=== PATIENT | male | born 1960 | race Caucasian/White ===

== ENCOUNTER 2018-06-13 11:45 | Day surgery (SDC) | payer BC ==
[2018-06-13] MEDS: Lactated Ringers 1,000 ML IV SCH (13:07)
[2018-06-13] MEDS: Sodium Chloride 0.9% 10 ML Syringe FLUSH PRN (13:08)
[2018-06-13] MEDS ORDERED: Propofol 200 MG/20 ML SDV ONE ×2 (14:59→15:15)
[2018-06-13] MEDS ORDERED: Midazolam 1 MG/ML 2 ML SDV ONE (14:59)
--- NOTE | 2018-06-13 14:59 | PCM.PN ---
- General Info Date of Service: 06/13/18 - Review of Systems Systems Review Comment:: 58 y/o male here for screening colonoscopy. His last colonoscopy was 10 years ago. He does have a remote history of polyps as a child. He is medically stable to proceed today. His recent history and physical is reviewed and no significant changes are noted. I discussed the proposed colonoscopy with the patient. He agrees to proceed accepting risks. - Patient Data Vitals - Most Recent: Last Vital Signs Temp 96.8 F 06/13/18 12:40 Pulse 65 06/13/18 12:40 Resp 14 06/13/18 12:40 BP 133/89 06/13/18 12:40 Pulse Ox 99 06/13/18 12:40 Weight - Most Recent: 95.254 kg Med Orders - Current: Current Medications Lactated Ringer's (Ringers, Lactated) 1,000 mls @ 50 mls/hr IV ASDIRECTED MORENO Last Admin: 06/13/18 13:07 Dose: 50 mls/hr Sodium Chloride (Saline Flush) 10 ml FLUSH Q8HR PRN PRN Reason: keep vein open Last Admin: 06/13/18 13:08 Dose: 10 ml - Problem List Review Problem List Initiated/Reviewed/Updated: Yes - My Orders Last 24 Hours: My Active Orders 06/13/18 12:00 Peripheral IV Care [RC] . DIRECTED Vital Signs [RC] PER UNIT ROUTINE Lactated Ringers [Ringers, Lactated] 1,000 ml IV ASDIRECTED Sodium Chloride 0.9% [Saline Flush] 10 ml FLUSH Q8HR PRN Peripheral IV Insertion Adult [OM.PC] Routine 06/13/18 12:30 Patient to Empty Bladder [RC] ASDIRECTED 06/13/18 13:15 Verify Patient Consent Obtain [RC] ASDIRECTED 06/13/18 Breakfast Nothing Per Oral Diet [DIET] - Assessment Assessment:: Colon cancer screening - Plan Plan:: Colonoscopy
[2018-06-13] MEDS ORDERED: Midazolam 1 MG/ML 2 ML SDV IV ONE (15:00)
[2018-06-13] MEDS ORDERED: Propofol 200 MG/20 ML SDV IV ONE (15:00)
--- NOTE | 2018-06-13 15:42 | PCM.OPNOTE ---
- General Post-Op/Procedure Note Date of Surgery/Procedure: 06/13/18 Operative Procedure(s): Colonoscopy with Polypectomy Findings: Small Sigmoid Colon Polyp Hemorrhoids Pre Op Diagnosis: Colon Cancer Screening Post-Op Diagnosis: Colon Polyp. Hemorrhoids Anesthesia Technique: MAC Primary Surgeon: David Bhatti Pathology: Sigmoid Colon Polyp Output, Urine Amount: 0 EBL in mLs: 0 Complications: None Condition: Good
--- NOTE | 2018-06-13 19:27 | OR ---
DATE OF SURGERY: 06/13/2018 SURGEON: David Bhatti MD REFERRING PROVIDER: TETE Carter PREOPERATIVE DIAGNOSIS: Colon cancer screening. POSTOPERATIVE DIAGNOSIS: Sigmoid colon polyp and hemorrhoids. OPERATION PERFORMED: Colonoscopy with polypectomy. INDICATIONS FOR SURGERY: This 58-year-old male is referred for screening colonoscopy. It has been 10 years since his last colonoscopy. He does have a remote history of colon polyps as a child. FINDINGS: One small polyp was noted in the sigmoid colon, 20 cm from the anal verge. The polyp was approximately 4 mm in size and sessile in configuration. The remainder of the colon appears normal. The patient does have moderate sized internal and external hemorrhoids. DESCRIPTION OF PROCEDURE: The patient was taken to the operating room, he was given intravenous sedation and with him in the left lateral decubitus position digital rectal exam was performed showing no rectal masses. The Olympus colonoscope was inserted into the rectum, retroflexed examination of the rectal canal was performed, the scope was then carefully advanced under direct visualization through the entire length of the colon until the cecum was reached. Cecal acquisition was confirmed by noting the normal internal cecal anatomy including the appendiceal orifice and ileocecal valve. The light was also noted to transilluminate the abdominal wall in the right lower quadrant. After examining the cecum, the scope was slowly withdrawn sequentially re- examining the colonic segments. In the sigmoid colon, the above-described polyp was identified, it ws removed with a cautery snare and retrieved into a polyp trap. The examination was completed and after the entire colon and rectum had been fully examined and with no sign of any complication, the scope was removed and the patient was taken from the operating room in satisfactory condition. ESTIMATED BLOOD LOSS: Zero. COMPLICATIONS: None. PROGNOSIS: Good. /[id number]/MODL
== END 2018-06-13 17:15 | disposition home or self-care (01) ==
LOC: KA.SDS 11:45
PROVIDERS: ATTEND Surgery
DX: Z12.11 Encounter for screening for malignant neoplasm of colon (principal); K63.5 Polyp of colon; K64.8 Other hemorrhoids; K64.4 Residual hemorrhoidal skin tags; I10 Essential (primary) hypertension; Z86.010 Personal history of colon polyps; Z79.899 Other long term (current) drug therapy
CPT/HCPCS: J2250; J2704; J7120

== ENCOUNTER 2018-08-26 11:59 | Emergency (ER) | payer BC ==
[2018-08-26] MEDS ORDERED: Ondansetron 4 MG Tab.DIS PO ONE (12:30)
[2018-08-26] MEDS ORDERED: Sodium Chloride 0.9% 1,000 ML IV ONE (12:31)
[2018-08-26 13:21] LABS: ANION GAP 15.6 mmol/L (5-15); CHLORIDE,CL 105 mmol/L (98-115); SODIUM,NA 140 mmol/L (136-145)
[2018-08-26] MEDS ORDERED: Acetaminophen/oxyCODONE 325-5 MG Tab PO ONE (14:08)
--- NOTE | 2018-08-26 14:36 | EDM.PDOC ---
ED HPI GENERAL MEDICAL PROBLEM - General Chief Complaint: Lower Extremity Injury/Pain Stated Complaint: lightheaded, nausea Time Seen by Provider: 08/26/18 12:20 Source of Information: Reports: Patient, Family () History Limitations: Reports: No Limitations - History of Present Illness INITIAL COMMENTS - FREE TEXT/NARRATIVE: Mr. Lopezs a pleasant 58-year-old male brought in today by his for evaluation of an episode of feeling lightheaded, clammy and mild nausea. Patient is status post a right total knee arthroplasty approximately week to 10 days out and he is doing well with his therapy. He's been taking Percocet for his pain 4 times a day. He was trying to extend the duration of his medication as he was going to run out of his pain pills tomorrow morning. He woke up this morning feeling lightheaded, mildly diaphoretic and nauseated. He reports no shortness of breath, chest pain, palpitations. He does not have any abdominal pain complaints or tenderness. He has not vomited. His noticed his stools are dark. His therapies are coming along nicely with regards to motion. He reports no pain or tenderness in his calf or thigh. His swelling is been minimal in his knee. His incision is been dry. His vital signs shows that his blood pressures were running in the 80s over 40s. He was clammy. 1 L of normal saline was started in IV placed. EKG showed normal sinus rhythm and nonspecific T-wave abnormality. His heart rate was 77 bpm. He is not experiencing labored or difficulty breathing. He reports his pain is well controlled currently at this time. Onset: Today Onset Date: 08/26/18 Onset Time: 08:00 Duration: Hour(s):, Improving Location: Reports: Lower Extremity, Right (s/p RTKA), Generalized Quality: Reports: Ache Severity: Moderate Improves with: Reports: Rest Worsens with: Reports: Movement Associated Symptoms: Reports: Diaphoresis, Nausea/Vomiting. Denies: Chest Pain , Fever/Chills, Headaches, Shortness of Breath, Syncope Treatments MANAGER UNION: Reports: Aspirin, NSAIDS, Other Medication(s) Right Knee Pain Score (Numeric/FACES): 3 - Related Data Allergies Allergy/AdvReac Type Severity Reaction Status Date / Time No Known Drug Allergies Allergy Other Verified 08/26/18 12:58 Home Meds: Home Meds Ibuprofen 200 mg PO ASDIRECTED 06/12/18 [History] Lisinopril 10 mg PO DAILY 06/12/18 [History] Naproxen Sodium [Aleve] 220 mg PO ASDIRECTED 06/12/18 [History] Aspirin 325 mg PO 08/26/18 [History] oxyCODONE HCl/Acetaminophen [Oxycodone-Acetaminophen 5-325] 5 - 325 mg PO Q4HR PRN 08/26/18 [History] Past Medical History HEENT History: Reports: Impaired Vision Cardiovascular History: Reports: Hypertension Gastrointestinal History: Reports: Colon Polyp, GERD, Hemorrhoids Musculoskeletal History: Reports: Other (See Below) Other Musculoskeletal History: rotator cuff bilateral shoulders Endocrine/Metabolic History: Reports: Obesity/BMI 30+ - Infectious Disease History Infectious Disease History: Reports: Chicken Pox - Past Surgical History HEENT Surgical History: Reports: Oral Surgery Cardiovascular Surgical History: Reports: None GI Surgical History: Reports: Colonoscopy, Polypectomy Endocrine Surgical History: Reports: None Musculoskeletal Surgical History: Reports: Arthroscopic Procedure, Carpal Tunnel , Other (See Below) Other Musculoskeletal Surgeries/Procedures:: Right knee replacement Social & Family History - Family History Family Medical History: Noncontributory - Tobacco Use Smoking Status *Q: Never Smoker - Caffeine Use Caffeine Use: Reports: Coffee, Soda - Alcohol Use Days Per Week of Alcohol Use: 2 Number of Drinks Per Day: 2 Total Drinks Per Week: 4 - Recreational Drug Use Recreational Drug Use: No ED ROS GENERAL - Review of Systems Review Of Systems: See Below Constitutional: Reports: Diaphoresis. Denies: Fever, Chills, Weakness, Fatigue HEENT: Reports: No Symptoms Respiratory: Denies: Shortness of Breath, Wheezing Cardiovascular: Reports: Blood Pressure Problem, Lightheadedness. Denies: Chest Pain, Edema, Palpitations, Syncope Endocrine: Reports: No Symptoms GI/Abdominal: Reports: Black Stool, Nausea. Denies: Vomiting : Reports: No Symptoms Musculoskeletal: Reports: Joint Pain (s/p RTKA), Joint Swelling (s/p RTKA) Skin: Reports: No Symptoms, Diaphoresis Neurological: Reports: Dizziness. Denies: Syncope, Trouble Speaking, Difficulty Walking, Weakness, Change in Speech, Gait Disturbance Psychiatric: Reports: No Symptoms Hematologic/Lymphatic: Reports: Anemia (mild postop) Immunologic: Reports: No Symptoms ED EXAM, DIZZINESS - Physical Exam Exam: See Below Exam Limited By: No Limitations General Appearance: Alert, WD/WN, No Apparent Distress, Obese Eye Exam: Bilateral Eye: EOMI, PERRL Ears: Hearing Grossly Normal Nose: Normal Inspection Throat/Mouth: Normal Inspection, Normal Oropharynx, Normal Voice, No Airway Compromise Head Exam: Atraumatic, Normocephalic Vertigo: No: worsens with head to L, worsens with head to R Neck: Normal Inspection, Supple Respiratory/Chest: No Respiratory Distress, Lungs Clear, Normal Breath Sounds, Chest Non-Tender Cardiovascular: Normal Peripheral Pulses, Regular Rate, Rhythm, No Murmur GI/Abdominal: Soft, Non-Tender Neurological: Alert, Normal Mood/Affect, No Motor/Sensory Deficits, Oriented x 3 Back Exam: Normal Inspection Extremities: Normal Inspection, Non-Tender, Joint Swelling, Other ( over the right knee consistent with total knee arthroplasty. No redness or drainage. Motion actively is 110 of flexion comes out to 0 extension). No: Gerson's Sign , Leg Pain, Redness Psychiatric: Normal Affect, Normal Mood Skin Exam: Dry, Intact, Normal Color, Cool Course - Vital Signs Last Recorded V/S: Last Vital Signs Temp 96.3 F 08/26/18 12:15 Pulse 68 08/26/18 13:45 Resp 17 08/26/18 13:45 BP 105/41 L 08/26/18 13:45 Pulse Ox 99 08/26/18 13:45 - Orders/Labs/Meds Orders: Active Orders 24 hr Category Date Time Status EKG Documentation Completion [RC] ASDIRECTED Care 08/26/18 13:01 Active EKG 12 Lead [EK] Routine Ther 08/26/18 13:00 Ordered Labs: Laboratory Tests 08/26/18 08/26/18 08/26/18 Range/Units 12:20 12:20 12:40 WBC 10.19 H (5.00-10.00) 10^3/uL RBC 3.57 L (4.50-6.00) 10^6/uL Hgb 10.6 L D (13.0-17.0) g/dL Hct 31.6 L (40.0-52.0) % MCV 88.5 D (82.0-92.0) fL MCH 29.7 (27.0-31.0) pg MCHC 33.5 (32.0-36.0) g/dL RDW 12.4 (11.5-14.5) % Plt Count 328 D (150-400) 10^3/uL MPV 9.6 (7.4-10.4) fL Immature Gran % (Auto) 0.8 (0.0-5.0) % Neut % (Auto) 86.5 H (50.0-70.0) % Lymph % (Auto) 7.3 L (20.0-40.0) % [place] % (Auto) 4.6 (2.0-8.0) % Eos % (Auto) 0.4 L (1.0-3.0) % Baso % (Auto) 0.4 (0.0-1.0) % Immature Gran # (Auto) 0.08 (0.00-0.50) 10^3/uL Neut # (Auto) 8.82 H (2.50-7.00) 10^3/uL Lymph # (Auto) 0.74 L (1.00-4.00) 10^3/uL [place] # (Auto) 0.47 (0.10-0.80) 10^3/uL Eos # (Auto) 0.04 L (0.10-0.30) 10^3/uL Baso # (Auto) 0.04 (0.00-0.10) 10^3/uL D-Dimer, Quantitative 1570 H (<400) ng/mL Sodium (136-145) mmol/L Potassium (3.3-5.3) mmol/L Chloride (98-115) mmol/L Carbon Dioxide (21.0-32.0) mmol/L Anion Gap (5-15) mmol/L BUN (6-25) mg/dL Creatinine (0.51-1.17) mg/dL Est Cr Clr Drug Dosing mL/min Estimated GFR (MDRD) mL/min Glucose (75 - 99) mg/dL Calcium (8.7-10.3) mg/dL Creatine Kinase 44 (26-276) U/L CK-MB (CK-2) 0.60 (0.00-4.30) ng/mL Troponin I 0.04 (0.00-0.070) ng/mL 08/26/18 Range/Units 12:40 WBC (5.00-10.00) 10^3/uL RBC (4.50-6.00) 10^6/uL Hgb (13.0-17.0) g/dL Hct (40.0-52.0) % MCV (82.0-92.0) fL MCH (27.0-31.0) pg MCHC (32.0-36.0) g/dL RDW (11.5-14.5) % Plt Count (150-400) 10^3/uL MPV (7.4-10.4) fL Immature Gran % (Auto) (0.0-5.0) % Neut % (Auto) (50.0-70.0) % Lymph % (Auto) (20.0-40.0) % [place] % (Auto) (2.0-8.0) % Eos % (Auto) (1.0-3.0) % Baso % (Auto) (0.0-1.0) % Immature Gran # (Auto) (0.00-0.50) 10^3/uL Neut # (Auto) (2.50-7.00) 10^3/uL Lymph # (Auto) (1.00-4.00) 10^3/uL [place] # (Auto) (0.10-0.80) 10^3/uL Eos # (Auto) (0.10-0.30) 10^3/uL Baso # (Auto) (0.00-0.10) 10^3/uL D-Dimer, Quantitative (<400) ng/mL Sodium 140 (136-145) mmol/L Potassium 5.5 H D (3.3-5.3) mmol/L Chloride 105 (98-115) mmol/L Carbon Dioxide 24.9 (21.0-32.0) mmol/L Anion Gap 15.6 H (5-15) mmol/L BUN 38 H (6-25) mg/dL Creatinine 0.85 (0.51-1.17) mg/dL Est Cr Clr Drug Dosing 83.40 mL/min Estimated GFR (MDRD) > 60 mL/min Glucose 154 H (75 - 99) mg/dL Calcium 8.3 L (8.7-10.3) mg/dL Creatine Kinase (26-276) U/L CK-MB (CK-2) (0.00-4.30) ng/mL Troponin I (0.00-0.070) ng/mL Meds: Medications Discontinued Medications Generic Name Dose Route Start Last Admin Trade Name Rober PRN Reason Stop Dose Admin Sodium Chloride 1,000 mls @ 999 mls/hr 08/26/18 12:31 08/26/18 12:59 Normal Saline IV 08/26/18 13:31 999 mls/hr .BOLUS ONE Administration Ondansetron HCl 4 mg 08/26/18 12:30 08/26/18 13:15 Zofran Odt PO 08/26/18 12:31 4 mg ONETIME ONE Administration Oxycodone/Acetaminophen 4 tab 08/26/18 14:08 08/26/18 14:36 Percocet 325-5 Mg PO 08/26/18 14:09 4 tab ONETIME ONE Administration - Re-Assessments/Exams Free Text/Narrative Re-Assessment/Exam: 08/26/18 14:38 Patient feels better with 1 L normal saline IV hydration. His blood pressures improved steadily. Orthostatic blood pressures were taken and with standing his blood pressure was 106/88. Departure - Departure Time of Disposition: 14:45 Disposition: Home, Self-Care 01 Condition: Good Clinical Impression: Hypotensive episode, Hyperkalemia, transcellular shifts, Idiopathic hypocalcemia, Status post total knee replacement, right - Discharge Information Instructions: Hypotension, [id number], Hyperkalemia, [id number], Hypocalcemia, Adult Referrals: Georgia Marvin MD [Primary Care Provider] - Forms: ED Department Discharge - My Orders Last 24 Hours: My Active Orders 08/26/18 13:00 EKG 12 Lead [EK] Routine 08/26/18 13:01 EKG Documentation Completion [RC] ASDIRECTED - Assessment/Plan Last 24 Hours: My Active Orders 08/26/18 13:00 EKG 12 Lead [EK] Routine 08/26/18 13:01 EKG Documentation Completion [RC] ASDIRECTED Assessment:: 1. Hypotension, improved with IV hydration normal saline 1 L. We will hold his lisinopril 10 mg until follow-up Tuesday with Georgia Causey. 2. Mild hyperkalemia likely imbalance from intra-cellular and extracellular exchange. Observation 3. Mild hypocalcemia observation. 4. Status post right total knee arthroplasty. Doing well Plan: 1. Rest 2. Continue to oral hydration avoid caffeinated drinks 3. We are going to hold your lisinopril 10 mg daily until follow-up Tuesday with Dr. Georgia Causey. 4. Return to the ER if diaphoretic shortness of breath chest pain occurs.
== END 2018-08-26 14:39 | disposition home or self-care (01) ==
LOC: KA.ED 11:59
DX: I95.9 Hypotension, unspecified (principal); E87.5 Hyperkalemia; E83.51 Hypocalcemia; E87.6 Hypokalemia; I10 Essential (primary) hypertension; Z96.651 Presence of right artificial knee joint; Z79.82 Long term (current) use of aspirin; Z79.899 Other long term (current) drug therapy
CPT/HCPCS: 36415; 80048; 82550; 82553; 84484; 85025; 85379; 93005; 96360; 99284-25; A9270-GY; J7030

== ENCOUNTER 2018-12-30 10:38 | Emergency (ER) | payer BC ==
--- NOTE | 2018-12-30 11:14 | EDM.PDOC ---
ED HPI GENERAL MEDICAL PROBLEM - General Chief Complaint: Back Pain or Injury Stated Complaint: LEFT LOWER BACK PAIN Time Seen by Provider: 12/30/18 11:03 Source of Information: Reports: Patient History Limitations: Reports: No Limitations - History of Present Illness INITIAL COMMENTS - FREE TEXT/NARRATIVE: 58 YO WM presents to ER complaining of left sided low back pain x 5 days. Pt reports Pt radiates down his left leg. Pt states he had more intense pain this am and took 1500mg of Tylenol with relief. Pt reports pain doesn't seem to worsen with movement. Pt reports mild left testicular pain which is intermittent and mild earlier in the week. Pt denies nausea/vomiting, no fever/ chills, no dysuria, frequency or urgency. Onset Date: 12/27/18 Duration: Day(s): (5) Location: Reports: Back Quality: Reports: Ache Severity: Moderate Improves with: Reports: Medication Worsens with: Reports: None Associated Symptoms: Reports: No Other Symptoms Treatments AFTERSCHOOL: Reports: Acetaminophen Left Leg Pain Score (Numeric/FACES): 9 - Related Data Allergies Allergy/AdvReac Type Severity Reaction Status Date / Time No Known Drug Allergies Allergy Other Verified 08/26/18 12:58 Home Meds: Home Meds Ibuprofen 200 mg PO ASDIRECTED 06/12/18 [History] Lisinopril 10 mg PO DAILY 06/12/18 [History] Naproxen Sodium [Aleve] 220 mg PO ASDIRECTED 06/12/18 [History] Acetaminophen 1,000 mg PO Q4H PRN 12/30/18 [History] Orphenadrine [Norflex] 100 mg PO BID PRN #10 tab 12/30/18 [Rx] predniSONE 20 mg PO WITHBREAKFAST #15 tab 12/30/18 [Rx] traMADol [Ultram] 50 mg PO Q6H PRN #15 tab 12/30/18 [Rx] Past Medical History HEENT History: Reports: Impaired Vision Cardiovascular History: Reports: Hypertension Gastrointestinal History: Reports: Colon Polyp, GERD, Hemorrhoids Musculoskeletal History: Reports: Other (See Below) Other Musculoskeletal History: rotator cuff bilateral shoulders Endocrine/Metabolic History: Reports: Obesity/BMI 30+ - Infectious Disease History Infectious Disease History: Reports: Chicken Pox - Past Surgical History HEENT Surgical History: Reports: Oral Surgery Cardiovascular Surgical History: Reports: None GI Surgical History: Reports: Colonoscopy, Polypectomy Endocrine Surgical History: Reports: None Musculoskeletal Surgical History: Reports: Arthroscopic Procedure, Carpal Tunnel , Other (See Below) Other Musculoskeletal Surgeries/Procedures:: Right knee replacement Social & Family History - Family History Family Medical History: Noncontributory - Caffeine Use Caffeine Use: Reports: Coffee, Soda ED ROS GENERAL - Review of Systems Review Of Systems: See Below Constitutional: Reports: No Symptoms HEENT: Reports: No Symptoms Respiratory: Reports: No Symptoms Cardiovascular: Reports: No Symptoms Endocrine: Reports: No Symptoms GI/Abdominal: Reports: No Symptoms Musculoskeletal: Reports: Back Pain Skin: Reports: No Symptoms Neurological: Reports: No Symptoms Psychiatric: Reports: No Symptoms Hematologic/Lymphatic: Reports: No Symptoms Immunologic: Reports: No Symptoms ED EXAM,LOWER BACK PAIN/INJURY - Physical Exam Exam: See Below Exam Limited By: No Limitations General Appearance: Alert, WD/WN, No Apparent Distress Head: Atraumatic, Normocephalic Neck: Normal Inspection, Supple, Non-Tender, Full Range of Motion Respiratory/Chest: No Respiratory Distress, Lungs Clear, Normal Breath Sounds, No Accessory Muscle Use, Chest Non-Tender Cardiovascular: Normal Peripheral Pulses, Regular Rate, Rhythm, No Edema, No Gallop, No JVD, No Murmur, No Rub GI/Abdominal: Normal Bowel Sounds, Soft, Non-Tender, No Organomegaly, No Distention, No Abnormal Bruit, No Mass Back Exam: Normal Inspection, Full Range of Motion. No: CVA Tenderness (L), CVA Tenderness (R), Decreased Range of Motion, Muscle Spasm, Paraspinal Tenderness, Vertebral Tenderness Extremities: Normal Inspection, Normal Range of Motion, Non-Tender, No Pedal Edema, Normal Capillary Refill Neurological: Alert, Normal Mood/Affect, Normal Dorsiflexion, CN II-XII Intact, Normal Plantar Flexion, Normal Gait, Normal Reflexes, No Motor/Sensory Deficits , Oriented x 3 Course - Vital Signs Last Recorded V/S: Last Vital Signs Temp 36.5 C 12/30/18 10:58 Pulse 71 12/30/18 10:58 Resp 20 12/30/18 10:58 BP Pulse Ox 93 L 12/30/18 10:58 - Orders/Labs/Meds Orders: Active Orders 24 hr Category Date Time Status Peripheral IV Care [RC] . DIRECTED Care 12/30/18 11:22 Active LORazepam [Ativan] Med 12/30/18 12:21 Once 1 mg IVPUSH ONETIME ONE Sodium Chloride 0.9% [Saline Flush] Med 12/30/18 11:22 Active 10 ml FLUSH Q8HR PRN methylPREDNISolone Sod Succ [Solu-MEDROL] Med 12/30/18 12:21 Once 125 mg IVPUSH ONETIME ONE Peripheral IV Insertion Adult [OM.PC] Routine Oth 12/30/18 11:22 Ordered Medication Orders Sodium Chloride (Saline Flush) 10 ml FLUSH Q8HR PRN PRN Reason: keep vein open Labs: Laboratory Tests 12/30/18 12/30/18 12/30/18 Range/Units 11:20 11:30 11:30 WBC 7.99 (5.00-10.00) 10^3/uL RBC 5.60 (4.50-6.00) 10^6/uL Hgb 15.0 D (13.0-17.0) g/dL Hct 45.0 (40.0-52.0) % MCV 80.4 L D (82.0-92.0) fL MCH 26.8 L (27.0-31.0) pg MCHC 33.3 (32.0-36.0) g/dL RDW 14.8 H (11.5-14.5) % Plt Count 215 D (150-400) 10^3/uL MPV 10.1 (7.4-10.4) fL Immature Gran % (Auto) 0.3 (0.0-5.0) % Neut % (Auto) 78.1 H (50.0-70.0) % Lymph % (Auto) 11.9 L (20.0-40.0) % [place] % (Auto) 8.4 H (2.0-8.0) % Eos % (Auto) 0.9 L (1.0-3.0) % Baso % (Auto) 0.4 (0.0-1.0) % Immature Gran # (Auto) 0.02 (0.00-0.50) 10^3/uL Neut # (Auto) 6.25 (2.50-7.00) 10^3/uL Lymph # (Auto) 0.95 L (1.00-4.00) 10^3/uL [place] # (Auto) 0.67 (0.10-0.80) 10^3/uL Eos # (Auto) 0.07 L (0.10-0.30) 10^3/uL Baso # (Auto) 0.03 (0.00-0.10) 10^3/uL Sodium 138 (136-145) mmol/L Potassium 4.2 (3.3-5.3) mmol/L Chloride 103 (98-115) mmol/L Carbon Dioxide 25.4 (21.0-32.0) mmol/L Anion Gap 13.8 (5-15) mmol/L BUN 18 (6-25) mg/dL Creatinine 0.78 (0.51-1.17) mg/dL Est Cr Clr Drug Dosing 90.88 mL/min Estimated GFR (MDRD) > 60 mL/min Glucose 107 H (75 - 99) mg/dL Calcium 8.9 (8.7-10.3) mg/dL Specimen Type Urinvoid Urine Color Yellow (YELLOW) Urine Appearance Clear (CLEAR) Urine pH 6.5 (5.0-9.0) Ur Specific [place] 1.020 (1.005-1.030) Urine Protein Negative (NEGATIVE) mg/dL Urine Glucose (UA) Negative (NEGATIVE) mg/dL Urine Ketones Negative (NEGATIVE) mg/dL Urine Occult Blood Negative (NEGATIVE) Urine Nitrite Negative (NEGATIVE) Urine Bilirubin Negative (NEGATIVE) Urine Urobilinogen 0.2 (0.2-1.0) E.U./dL Ur Leukocyte Esterase Negative (NEGATIVE) Urine RBC 0-5 (0-5) /HPF Urine WBC Not seen (0-5) /HPF Ur Epithelial Cells Rare /LPF Urine Bacteria Not seen (NONE TO FEW) /HPF Urine Mucus Few H (NEGATIVE) /LPF Meds: Medications Generic Name Dose Route Start Last Admin Trade Name Freq PRN Reason Stop Dose Admin Sodium Chloride 10 ml 12/30/18 11:22 Saline Flush FLUSH Q8HR PRN keep vein open Discontinued Medications Generic Name Dose Route Start Last Admin Trade Name Freq PRN Reason Stop Dose Admin Sodium Chloride 1,000 mls @ 999 mls/hr 12/30/18 11:22 12/30/18 11:54 Normal Saline IV 12/30/18 12:22 999 mls/hr .BOLUS ONE Administration Ketorolac Tromethamine 30 mg 12/30/18 11:22 12/30/18 12:00 Toradol IVPUSH 12/30/18 11:23 30 mg ONETIME ONE Administration - Radiology Interpretation Free Text/Narrative:: lumbar spine- DJD; osteophytes and facet arthropathy Departure - Departure Time of Disposition: 12:38 Disposition: Home, Self-Care 01 Condition: Good Clinical Impression: Sciatica of left side - Discharge Information Prescriptions: Orphenadrine [Norflex] 100 mg PO BID PRN #10 tab PRN Reason: Muscle Spasm predniSONE 20 mg PO WITHBREAKFAST #15 tab traMADol [Ultram] 50 mg PO Q6H PRN #15 tab PRN Reason: Pain Instructions: Sciatica Referrals: Georgia Marvin MD [Primary Care Provider] - Forms: ED Department Discharge Additional Instructions: 1. discharge home 2. prednisone 60mg PO QD x 5 days 3. Ultram 50mg PO Q4-6 #15 4. Flexeril 10mg PO TID PRN #10 5. heat/massage/stretching 6. follow up with PCP if no improvement next 7 days 7. return to ER for worsening symptoms - My Orders Last 24 Hours: My Active Orders 12/30/18 11:22 Peripheral IV Care [RC] . DIRECTED Sodium Chloride 0.9% [Saline Flush] 10 ml FLUSH Q8HR PRN Peripheral IV Insertion Adult [OM.PC] Routine 12/30/18 12:21 LORazepam [Ativan] 1 mg IVPUSH ONETIME ONE methylPREDNISolone Sod Succ [Solu-MEDROL] 125 mg IVPUSH ONETIME ONE - Assessment/Plan Last 24 Hours: My Active Orders 12/30/18 11:22 Peripheral IV Care [RC] . DIRECTED Sodium Chloride 0.9% [Saline Flush] 10 ml FLUSH Q8HR PRN Peripheral IV Insertion Adult [OM.PC] Routine 12/30/18 12:21 LORazepam [Ativan] 1 mg IVPUSH ONETIME ONE methylPREDNISolone Sod Succ [Solu-MEDROL] 125 mg IVPUSH ONETIME ONE Assessment:: 1. acute sciatica Plan: 1. discharge home 2. prednisone 60mg PO QD x 5 days 3. Ultram 50mg PO Q4-6 #15 4. Flexeril 10mg PO TID PRN #10 5. heat/massage/stretching 6. follow up with PCP if no improvement next 7 days 7. return to ER for worsening symptoms
[2018-12-30] MEDS ORDERED: Sodium Chloride 0.9% 1,000 ML IV ONE (11:22)
[2018-12-30] MEDS ORDERED: Sodium Chloride 0.9% 10 ML Syringe FLUSH PRN (11:22)
[2018-12-30] MEDS ORDERED: Ketorolac 30 MG/ML SDV IVPUSH ONE (11:22)
[2018-12-30 12:04] LABS: ANION GAP 13.8 mmol/L (5-15); CHLORIDE,CL 103 mmol/L (98-115); SODIUM,NA 138 mmol/L (136-145)
--- NOTE | 2018-12-30 12:20 | CR ---
[id number] RAD/RAD Lumbar Spine 2-3V EXAM: AP AND LATERAL LUMBAR SPINE. INDICATION: EXAM: AP AND LATERAL LUMBAR SPINE. INDICATION: Pain. COMPARISON: No previous similar exam is available for comparison. FINDINGS: No fracture or subluxation is seen. No evidence of acute compression deformity. The pedicles are intact. Multilevel degenerative changes of the lumbar spine including loss of disc space height, endplate osteophytosis and facet arthropathy. These findings are most pronounced at L4-L5 and L5-S1. IMPRESSION: No fracture or subluxation. Cameron Perales DO 12/30/18 0712 Thank you for allowing us to participate in the care of your patient.
[2018-12-30] MEDS ORDERED: methylPREDNISolone Sodium Succinate 125 MG/2 ML SDV IVPUSH ONE (12:21)
[2018-12-30] MEDS ORDERED: LORazepam 2 MG/ML SDV IVPUSH ONE (12:21)
[2018-12-30] MEDS ORDERED: Cyclobenzaprine 10 MG Tab PO ONE (12:41)
== END 2018-12-31 13:05 | disposition home or self-care (01) ==
LOC: KA.ED 10:38
DX: M54.32 Sciatica, left side (principal); I10 Essential (primary) hypertension; K21.9 Gastro-esophageal reflux disease without esophagitis; Z79.899 Other long term (current) drug therapy
CPT/HCPCS: 72100; 80048; 81001; 85025; 96361; 96374; 96375; 99283; A9270; J1885; J2060; J2930; J7030

== ENCOUNTER 2023-08-16 09:28 | Day surgery (SDC) | payer BC, MEDICARE ==
[2023-08-16] MEDS ORDERED: Sodium Chloride 0.9% 10 ML Syringe FLUSH PRN (09:30)
[2023-08-16] MEDS: Lactated Ringers 1,000 ML IV SCH (09:50)
[2023-08-16] MEDS ORDERED: Midazolam 1 MG/ML 2 ML SDV ONE (10:05)
[2023-08-16] MEDS ORDERED: Propofol 200 MG/20 ML SDV ONE (10:05)
== END 2023-08-16 12:33 | disposition home or self-care (01) ==
LOC: KA.SDS 09:28
PROVIDERS: ATTEND Surgery
DX: Z12.11 Encounter for screening for malignant neoplasm of colon (principal); D12.5 Benign neoplasm of sigmoid colon; K62.1 Rectal polyp; I10 Essential (primary) hypertension; Z86.010 Personal history of colon polyps
CPT/HCPCS: 00811; J2250; J2704; J3490; J7120

== ENCOUNTER 2024-05-31 15:12 | Emergency (ER) | payer MEDICARE ==
[2024-05-31 16:18] VITALS: BP 135/80; PULSE 84
== END 2024-05-31 16:24 | disposition home or self-care (01) ==
LOC: KA.ED 15:12
DX: S69.91XA Unspecified injury of right wrist, hand and finger(s), initial encounter (principal); M19.031 Primary osteoarthritis, right wrist; I10 Essential (primary) hypertension; E78.00 Pure hypercholesterolemia, unspecified; E66.9 Obesity, unspecified; Z68.32 Body mass index [BMI] 32.0-32.9, adult; Z86.16 Personal history of COVID-19; Z96.651 Presence of right artificial knee joint; Z79.899 Other long term (current) drug therapy; W01.0XXA Fall on same level from slipping, tripping and stumbling without subsequent striking against object, initial encounter
CPT/HCPCS: 29125; 73110-RT; 99283-25